=== PATIENT | female | born 1990 | race African-American/Black ===

== ENCOUNTER 2019-04-02 16:12 | Emergency (ER) | payer OTHER ==
[~2019-04-02] VITALS: Ht 154.9 cm; Wt 63.5 kg
[2019-04-02 16:21] VITALS: BP 117/75
--- NOTE | 2019-04-02 16:31 | NUR ---
ED Nurse Note: PtMarilia AAOx4. Pt. walked into ER Per pt., she has right eye pain and bump inside eye that she noted since yesterday. denies drainage. Pt. stated she used a new eyelash glue. Addendum: 04/02/19 at 1639 by [email or web address] ED Nurse Note: ptMarilia waldroned that the R eye pain has been going on for the last 2 days
[2019-04-02] MEDS ORDERED: ERYTHROMYCIN3.5 GM RIGHT EYE (16:40)
--- NOTE | 2019-04-02 16:40 | Emergency Room Report ---
History of Present Illness General Chief Complaint: Eye Problems Source: Patient Present Illness HPI 28-year-old female patient presents the ER complaining of bumps on eyelid for the past 2 days. Reports symptoms present after using fake eyelashes. Denies vision problems. Denies fever vomiting chills. Denies erythema. Denies drainage. Denies history of eye problems. Denies wearing contact lenses. Allergies: Coded Allergies: No Known Allergies (Unverified , 04/02/19) Patient History Past Medical History: see triage record Last Menstrual Period: 04/01/19 Now: No Reviewed Nursing Documentation: PMH: Agreed; PSxH: Agreed Nursing Documentation-PMH Past Medical History: No Stated History Review of Systems All Other Systems: negative except mentioned in HPI Physical Exam Vital Signs Date Time Temp Pulse Resp B/P (MAP) Pulse Ox O2 Delivery O2 Flow Rate FiO2 04/02/19 16:21 98.4 67 17 117/75 (89) 97 Room Air Sp02 EP Interpretation: reviewed, normal General Appearance: well appearing, no apparent distress, alert, GCS 15, non- toxic Head: normocephalic, atraumatic Eyes: right eye other - Upper eyelid: 2 small 2 mm papules, white, no erythema , no drainage; bilateral eye normal inspection, bilateral eye PERRL ENT: hearing grossly normal, normal pharynx, no angioedema, normal voice, uvula midline, moist mucus membranes Neck: full range of motion Respiratory: lungs clear, normal breath sounds, no rhonchi, no respiratory distress, no accessory muscle use, no wheezing, speaking full sentences Cardiovascular #1: regular rate, rhythm, no edema Musculoskeletal: back normal, digits/nails normal, gait/station normal, normal range of motion, non-tender Neurologic: alert, oriented x3, responsive, motor strength/tone normal, sensory intact Psychiatric: mood/affect normal Lymphatic: no adenopathy Medical Decision Making PA Attestation Dr. Cueto is my supervising Physician whom patient management has been discussed with. Diagnostic Impression: Primary Impression: Meibomian gland dysfunction ER Course Pt. presents to the ED c/o bumps on eye for 2 days. Ddx considered but are not limited to dacryocystitis, chalazion, stye, cellulitis, acne, meibomian gland inflammation., Vital signs: are WNL, pt. is afebrile ER COURSE: Advised on warm compresses and massage. Will provide patient with antibiotics to cover for possible infection. Follow-up with the primary care doctor in 2 to 3 days. Do not use fake eyelashes. DISCHARGE: At this time pt is stable for d/c to home. Patient is resting comfortably, in no acute distress, nontoxic appearing, talking without difficulty. Patient to take medications as instructed Will provide with patient care instructions and any necessary prescriptions. Care plan and follow-up instructions provided. Patient instructed to follow-up with primary care provider in 2-3 days. Patient questions asked and answered. Patient reports understanding and agreement to treatment plan. ER precautions given. Patient instructed to return to ER immediately for any new or worsening of symptoms including but not limited to increasing SOB, persistent fever, chest pain, intractable vomiting. - Please note that this Emergency Department Report was dictated using [employer] technology software, occasionally this can lead to erroneous entry secondary to interpretation by the dictation equipment. Last Vital Signs Date Time Temp Pulse Resp B/P (MAP) Pulse Ox O2 Delivery O2 Flow Rate FiO2 04/02/19 16:21 98.4 67 17 117/75 97 Room Air Disposition: HOME, SELF-CARE Condition: Stable Scripts Erythromycin Base (ERYTHROMYCIN*) 3.5 Gm Oint...g. 1 APPLIC RIGHT EYE TID, #3.5 GM 0 Refills Prov: Thang Daniel 04/02/19 Patient Instructions: Olivia Additional Instructions: Followup with primary care provider in 3 -5 days. Discuss referral to lean engineer and disc jockey. Take medications as directed. Patient questions asked and answered. ER precautions given, patient instructed to return to ER immediately for any new or worsening of symptoms. Thang Daniel Apr 02, 2019 16:40
--- NOTE | 2019-04-02 16:49 | NUR ---
ER DISCHARGE NOTE: Patient is cleared to be discharged per PA, pt is aox4, on room air, with stable vital signs. pt was given dc and prescription instructions, pt was able to verbalize understanding, pt id band removed. pt is able to ambulate with steady gait. pt took all belongings.
== END 2019-04-02 17:00 | disposition home or self-care (01) ==
LOC: EMR 16:52
DX: H02.881 Meibomian gland dysfunction right upper eyelid (principal)
CPT/HCPCS: 99282